=== PATIENT | male | born 1960 | race Caucasian/White ===

== ENCOUNTER 2020-07-05 14:38 | Emergency (ER) | payer BC, OTHER ==
[~2020-07-05] VITALS: Ht 167.6 cm; Wt 108.9 kg
[~2020-07-05 14:38] MED LIST: ACETAMINOPHEN325 M1 PO; ANTIVERT25 MG PO; LASIX20 MG PO; LEVAQUIN750 MG PO; NORCO 5-325 TA1 EACH PO; PREDNISONE10 MG PO; PREDNISONE20 MG PO; VITAMIN C1000 M1 PO; VITAMIN D3400 UNIT PO
[2020-07-05] MEDS ORDERED: POTASSIUM CHLO10 ME1 PO (14:59)
[2020-07-05] MEDS ORDERED: LASIX20 MG PO (14:59)
[2020-07-05] MEDS ORDERED: ELIQUIS5 MG PO (18:53)
--- NOTE | 2020-07-06 14:52 | EKG ---
[facility] [address] [place], [place] [address] Signed Sinus tachycardia with occasional premature ventricular complexes Otherwise normal ECG No previous ECGs available Confirmed by BAM SINGH DO ([id number]) on 07/06/2020 2:52:08 PM Electronically Signed By: BAM SINGH DO 07/06/20 1452 PATIENT NAME: OSCAR BONILLA MICHAEL Electrocardiogram DATE OF : 60 PHYSICIAN: BAM SINGH DO REPORT #: [id number] REPORT IS CONFIDENTIAL AND NOT TO BE RELEASED WITHOUT AUTHORIZATION
== END 2020-07-05 18:53 | disposition left against medical advice (07) ==
LOC: ED 14:38
DX: I82.442 Acute embolism and thrombosis of left tibial vein (principal); Z87.891 Personal history of nicotine dependence; Z88.5 Allergy status to narcotic agent; Z88.8 Allergy status to other drugs, medicaments and biological substances; Z88.1 Allergy status to other antibiotic agents; Z79.899 Other long term (current) drug therapy
CPT/HCPCS: 80053; 83735; 84484; 85025; 85610; 85730; 86850; 86900; 86901; 86920; 93005; 93010; 93971; 96372; 99285-25; J1650

== ENCOUNTER 2020-08-03 09:53 | Inpatient (IN) | payer BC ==
[~2020-08-03] VITALS: Ht 167.6 cm; Wt 120.2 kg
[~2020-08-03 09:53] MED LIST changes: -ANTIVERT25 MG PO; +ELIQUIS5 MG PO; +POTASSIUM CHLO10 ME1 PO; -VITAMIN C1000 M1 PO; +VITAMIN C1000 MG PO; +VITAMIN D310 MC1 PO; -VITAMIN D3400 UNIT PO; +WAL-DRAM 225 MG PO
--- OUTSIDE RECORDS SUMMARY | 2020-08-03 10:00 | XMS ---
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 CRITERIA MET - [facility] - 2 Visits in 30 Days CARE PROVIDERS RACH ZAPATA Internal Medicine Current PHONE: [phone] Brayan has no Care Guidelines for this patient. [place] VISIT COUNT (12 MO.) 1 [facility] 2 [facility]. TOTAL 3 NOTE: Visits indicate total known visits. ED/UCC VISIT TRACKING (12 MO.) 08/03/2020 09:53 [facility] TYPE: Emergency COMPLAINT: - R LEG SWOLLEN/OPEN SORES 07/05/2020 22:39 [facility] DIAGNOSES: - Anemia, unspecified - Other fatigue - Abnormal Lab - Other acquired hemolytic anemias 07/05/2020 14:38 [facility] TYPE: Emergency COMPLAINT: - DIZZINESS, R CALF PAIN DIAGNOSES: - Allergy status to narcotic agent - Weakness - Acute embolism and thrombosis of left tibial vein - Allergy status to other antibiotic agents - Other penitentiary (current) drug therapy - Personal history of nicotine dependence - Allergy status to other drugs, medicaments and biological substances INPATIENT VISIT TRACKING (12 MO.) 07/05/2020 22:39 [facility] [place] TYPE: Internal Medicine DIAGNOSES: - Anemia, unspecified - Unspecified viral hepatitis C without hepatic coma - Other acquired hemolytic anemias - Other stimulant abuse, in remission - Other fatigue - Pain in left lower leg [email or web address]
[2020-08-03] MEDS ORDERED: PREDNISONE20 MG PO (10:11)
--- NOTE | 2020-08-03 13:45 | NUR ---
MED SURG UNIT VIA STRETCHER. IV ROCEPHIN INFUSING. 20 G LAC IV REMAINS PATENT, NO REDNESS OR SWELLING NOTED AT SITE. LUNG SOUNDS ARE CLEAR THROUGHOUT. PT DENIES SOB OR N/V. 4+ PITTING EDEMA TO RLE, REDNESS NOTED ALONG W/ SMALL SCATTERED OPEN SORES TO MEDIAL AND LATERAL PORTION OF RLE. PT REPORTS 10/10 STABBING PAIN TO RLE WHEN ASKED. DOES NOT APPEAR IN DISTRESS AT THIS TIME. BG 271, 5 UNITS OF HUMALOG GIVEN. PT SITTING UP IN BED EATING LUNCH. ROCEPHIN COMPLETE, LR BOLUS @ 1000 MLS/HR NOW INFUSING TO LAC IV. ADMISSION ASSESSMENT COMPLETE. PT STEADY ON FEET IN TRANSFERRING FROM RNEY TO BED, ABLE TO AMBULATE INDEPENDENTLY. RLE ELEVATED PER MD. ORDERED ELIQUIS AND PREDNISONE GIVEN PER ORDER, PT STATES HE DID NOT TAKE HIS MORNING MEDICATIONS. VSS. PT REMAINS AFEBRILE @ 97.3. DENIES HAVING ANY FEVERS AT HOME. ADMISSION ASSESSMENT COMPLETE. CALL LIGHT IN REACH.
--- NOTE | 2020-08-03 15:00 | NUR ---
REPORT GIVEN TO DENNIS DUNN RN, WHO HAS NOW RESUMED CARE OF PT.
--- NOTE | 2020-08-03 15:09 | NUR ---
report received and care assumed. fresh h20 and personal items at bedside. pt denies needs of agrees to call for up out of bed
[2020-08-03] MEDS ORDERED: SYMBICORT 16010.2 GM INH (17:09)
--- NOTE | 2020-08-03 17:12 | NUR ---
Medications reconciled using pharmacy records and patient interview. Patient was prescribed Eliquis, but stopped taking it when he ran out.
--- NOTE | 2020-08-03 17:41 | NUR ---
PT UP IN ROOM INDEPENDANTLY APPEARS STEADY ON HIS FEET. SITTING ON EDGE OF BED NOW FOR EVENING MEAL.
--- NOTE | 2020-08-03 18:07 | NUR ---
PATIENT SITTING AT SIDE OF BED, FINISHING DINNER. VITALS AND I&OS CHARTED. CALL LIGTH IN REACH
--- NOTE | 2020-08-03 19:25 | NUR ---
PATIENT SITTING IN CHAIR WATCHING TV. PATIENT HAVING PAIN NOW IN THE RIGHT LEG AND REQUESTING TYLENOL. WILL RETURN WITH THIS MEDICATION. CALL LIGHT IN REACH.
--- NOTE | 2020-08-03 19:51 | NUR ---
PATIENT HAVING 10/10 RLE PAIN AND 500MG PO TYLENOL GIVEN. PATIENT'S WATER TOPPED OFF, URIANL EMPTIED. PATIENT IS BACK IN BED AND HAS HIS RIGHT LEG ELEVATED. PATIENT HAS CALL LIGHT IN REACH AND NO OTHER NEEDS AT THIS TIME.
--- NOTE | 2020-08-03 22:56 | NUR ---
PATIENT RESTING IN BED WATCHING TV. URINAL NEEDED EMPTIED SO THIS WAS DONE. PATIENT HAS NO OTHER NEEDS AT THIS TIME. CALL LIGHT IS IN REACH.
--- NOTE | 2020-08-04 00:35 | NUR ---
PATIENT'S URINAL NEEDED EMPTIED WHICH WAS DONE. PATIENT SAYS RLE PAIN 10/10 AGAIN AND PATIENT IS STANDING UP AT BEDSIDE AT THE MOMENT AND NO FACIAL GRIMACE NOTED. TYLENOL 500MG PO REPEATED. PATIENT HAS PO FLUIDS AT BEDSIDE AND CALL LIGHT IS IN REACH.
--- NOTE | 2020-08-04 01:00 | NUR ---
PATIENT RESTING QUIETLY IN BED WATCHING TV, CALL LIGHT IN REACH.
--- NOTE | 2020-08-04 02:00 | NUR ---
PATIENT RESTING QUIETLY WATCHING TV AND ICE WATER REFILLED. NO OTHER NEEDS. CALL LIGHT IN REACH.
--- NOTE | 2020-08-04 03:10 | NUR ---
PATIENT RESTING QUIETLY, EYES CLOSED, RESPIRATIONS REGULAR AND EVEN, CALL LIGHT IN REACH.
--- NOTE | 2020-08-04 05:59 | NUR ---
PATIENT SAYS HE HAS GOT A LITTLE SLEEP TONIGHT, BUT SAYS,"I'M A NIGHT OWL." PATIENT HAS BEEN TAKING IN PO FLUIDS WELL. VS HAVE BEEN STABLE. PATIENT DID GET 500MG OF TYLENOL TWICE TONIGHT FOR WHAT HE DESCRIBES 10/10 RLE PAIN. THE PAIN DROPS DOWN TO 7-8/10 AND HE IS COMFORTABLE AT THAT POINT. PATIENT HAD NO VERBALIZATION OF PAIN THIS AM. PATIENT HAS BEEN VOIDING A GREAT DEAL IN THE URINAL AND LEAVING IT AT THE BEDSIDE TO DUMP. PATIENT CALLS APPROPRIATELY AND IS ESSENTIALLY INDEPENDENT IN THE ROOM. CALL LIGHT IN REACH AND PATIENT IS CURRENTLY SITTING ON THE BEDSIDE AND HIS AM LABS HAVE BEEN DRAWN.
--- NOTE | 2020-08-04 07:25 | NUR ---
REPORT OFF TO MARQUES YANG. PATIENT HAVING 10/10 RLE PAIN AGAIN AND WAS GIVEN 500MG OF TYLENOL. CALL LIGHT IS IN REACH.
--- NOTE | 2020-08-04 07:47 | NUR ---
SHIFT REPORT FROM NURSE LOZA. PT IN BED AWAKE, ALERT AND TALKATIVE. PT DENIES NEEDS AT THIS TIME DENIA RN HAS JUST GIVEN PRN TYLENOL. CALL LIGHT WITHIN REACH
--- NOTE | 2020-08-04 09:30 | NUR ---
IN ROOM FOR MORNING MEDS AND ASSESSMENT. PT BACK IN BED AFTER BREAKFAST WITH LEG ELEVATED. EDEMA STILL PRONOUNCED IN R LEG, SOME WOUND DRAINAGE NOTED ON CHUCKS UNDER LEG. VSS. CMS INTACT. CBG 147 REQUIRING 1UNIT SS INSULIN. PT RATES PAIN 7-0/10 DEPENDING ON ACTIVITY. PRN TYLENOL HELPS SOME. ROCEPHIN INFUSING NOW. CALL LIGHT WITHIN REACH.
--- NOTE | 2020-08-04 10:44 | NUR ---
ROCEPHIN COMPLETE. IVF RETURNED TO LR. pt RESTING L LATERAL. DENIES NEEDS AT THIS TIME. CALL LIGHT WITHIN REACH
--- NOTE | 2020-08-04 11:15 | NUR ---
CALL LIGHT ANSWERED. pt REPORTS THAT HE HAS PULLED HIS IV OUT. UPON ENTERING ROOM, A FAIR AMOUNT OF BLOOD IS ON FLOOR, pt CONTINUES TO BLEED OUT OF IV SITE. IV SITE OCCLUDED WITH GAUZE AND pt INSTRUCTED TO SIT DOWN AND BEND ARM TO OCCLUDE SITE. NEW IV STARTED. pt BACK TO BED, IVF INFUSING. CALL LIGHT WITHIN REACH.
--- NOTE | 2020-08-04 14:38 | NUR ---
Pt states he lives alone in an apartment, has 6 steps with handrails. He works at [employer], but has not been able to do so on and off for t the last month due to pain. He does not drive, but son drives him to work, grocery shopping, and to Dr.' Champagne. Pt denies needs to go home and would like assist with papers for disabiltity. I encouraged him to speak with his DrRishi, he states he has and she does not feel he needs disability and is capable of working. Pt. Plans on dc to home when discharged.
--- NOTE | 2020-08-04 14:48 | NUR ---
PATIENT UP TO BATHROOM AND BACK TO BED, IND. FRESH WATER GIVEN. VITALS AND I&O'S CHARTED. CALL LIGHT IN REACH. NO FURTHER NEEDS AT THIS TIME.
--- NOTE | 2020-08-04 15:09 | NUR ---
IN ROOM TO HANG RAYA. pt REPORTS 8/10 PAIN IN RIGHT LEG. PRN PO TYLENOL ADMINISTERED. pt HAS LEG ELEVATED ON PILLOWS. CALL LIGHT WITHIN REACH
--- NOTE | 2020-08-04 16:01 | NUR ---
Srinivasan has been sitting in the chair in his room for approx 30 min. Srinivasan intiated a call light. I responded, pt reported IV pump was alarming. I silenced IV pump and sought preceptor Renetta. Srinivasan had been altering his posture by placing his left hand on the chair arm, occluding the IV placed in his wrist. Renetta/myself evaluated the area and IV and found no infiltration. IV pumps restarted. Srinivasan returned to the bed. Call light within reach.
--- NOTE | 2020-08-04 17:46 | NUR ---
IN ROOM FOR SS INSULIN ADMINISTRATION. CBG 286 REQUIRING 7UNITS SS INSULIN. pt REPORTS LEG PAIN 7/10 WHICH IS TOLERABLE TO pt IF HE REMAINS IN BED. pt UP TO TOILET TO VOID. WILL RETURN FOR ASSESSMENT.
--- NOTE | 2020-08-04 18:49 | NUR ---
ASSESSMENT COMPLETE. pt REPORTS ANOTHER BM. LUNGS HAVE EXPIRATORY WHEEZE THROUGHOUT; pt REPORTS USING INHALER IN THE PAST. VSS. RLE 4+EDEMA HOWEVER OVERALL REDNESS SEEMS IMPROVED. REDNESS REMAINS AROUND OPEN AREAS. pt REPORTS PAIN 7/10 BUT IF THE PAIN "GETS BETTER, I DO TOO MUCH" . pt DENIES FURTHER NEEDS AT THIS TIME. CALL LIGHT WITHIN REACH.
--- NOTE | 2020-08-04 20:44 | NUR ---
Pt in bed, up to br, had small formed bm, back to bed, On room air, SL L Arm flushes well. large soft abd. L leg 2+ generalized edema, skin scratches and scabbed over petra healing. R leg with 4+ pitting edema below the knee area, elevated in pillow, good CMS, scabbed over areas healing and several small blisters like petra back of leg moist, draining serous drainage. no odor. CBG 168 received 1 unit SS Insulin. med teaching of HS meds done, stated understanding. coop and pleasant. watching tv, denies c/o pain
--- NOTE | 2020-08-04 21:33 | NUR ---
PT CALLED REQUESTING TYLENOL FOR 10/10 R LEG PAIN. ADMINISTERED TYLENOL FOR PRIMARY RN EMANUEL AND PROVIDED MORE ICEWATER. PT DENIES FURTHER NEEDS AT THIS TIME. CALL LIGHT IS CLOSE.
--- NOTE | 2020-08-05 00:43 | NUR ---
Awakens easily, uses urinal, c/o mild IV site discomfort when Vancomycin infusing, no redness or edema at site, elevated. call light at bedside, R Leg elevated
--- NOTE | 2020-08-05 02:42 | NUR ---
resting, no s/sx distress, turns self in bed, sl at this time
--- NOTE | 2020-08-05 06:01 | NUR ---
PT REQUESTED SOME HOT TEA. HE DENIES FURTHER NEEDS. CALL LIGHT IS CLOSE.
--- NOTE | 2020-08-05 06:57 | NUR ---
RAYA THROUGHT 15.6, WILL CALL RX AT 0700 FOR FURTHER INSTRUCTIONS
--- NOTE | 2020-08-05 07:05 | NUR ---
BEDSIDE HANDOFF REPORT RECEIVED FROM CORRECTIONAL TREATMENT SPECIALIST RN. PT RESTING IN BED, IV VANCO INFUSION STARTED.
--- NOTE | 2020-08-05 08:00 | NUR ---
PT RESTING IN BED, RIGHT LEG ELEVATED. PT ON ROOM AI, LUNG SOUNDS CLEAR, DENIES SOB. BOWEL TONES ACTIVE, DENIES NAUSEA, BLOOD GLUCOSE 209, GIVEN 3 UNITS SS HUMALOG. PT RATING PAIN 7/10 TO RIGHT LEG, GIVEN TYLENOL. IV VANCO INFUSING. PT WITH EDEMA TO RIGHT LOWER LEG, 4+ IN FOOT, 2-3+ IN CRUZ, CRUZ WARM TENDER TO TOUCH. CMS INTACT. DISCUSSED PLAN OF CARE, PT ASKING ABOUT MRSA SCREEN, RESULTS STILL PENDING. PT DENIES OTHER NEEDS AT THIS TIME.
--- NOTE | 2020-08-05 10:15 | NUR ---
CHECKED PATIENTS BLOOD SUGAR UPON DR. SINGH'S REQUEST. BLOOD SUGAR WAS 324.
--- NOTE | 2020-08-05 10:45 | NUR ---
Srinivasan says IV in left wrist is hurting. Educated him on Vancomycin and that it can cause severe tenderness and pain. Vanco had been infused at this time. Switched Srinivasan to his next ABX hung with NS. Orthostatic BP was directed by provider. Conducted sittin/standing/lying BPs on Srinivasan. At this time Srinivasan returned to his bed. Srinivasan denies needing anything further at this time. Call light is within his reach.
--- NOTE | 2020-08-05 10:49 | NUR ---
PATIENT IN BED RESTING. VITALS AND I&O'S CHARTED. PATIENT WANTS TO SHOWER LATER. CALL LIGHT IN REACH. NO FURTHER NEEDS AT THIS TIME.
--- NOTE | 2020-08-05 12:06 | NUR ---
PT GIVEN 5 UNITS HUMALOG FOR BLOOD GLUCOSE 275. IV CATH REMOVED PER PT REQUEST, PLAN TO START NEW IV AFTER SHOWER. SHOWER ITEMS SET UP, PT WILL SHOWER AFTER LUNCH THEN CALL WHEN READY FOR NEW IV. PT DENIES OTHER NEEDS AT THIS TIME.
--- NOTE | 2020-08-05 12:28 | NUR ---
PT UP BRUSHING HAIR. HE IS ALERT ORIENTE AND WAITING FOR DC. PT EXPRESSED FRUSTRATION AT YET ANOTHER INFECTION. HAD GOOD VISIT, GAVE ENCOURAGEMENT, AND HAD PRAYER WITH PT. GAVE G.POST AND WILL FOLLOW
--- NOTE | 2020-08-05 13:34 | NUR ---
NO CHANGE IN DISCHARGE PLAN. TO RETURN HOME WITH HELP OF FAMILY/FRIENDS.
--- NOTE | 2020-08-05 13:42 | NUR ---
IV attempt X1 by community health nursing director, failed. IV attempt X1 failed by this nurse. IV started with second attempt to right hand. Tolerated well.
--- NOTE | 2020-08-05 13:45 | NUR ---
PT SITTING ON EDGE OF BED. AFTERNOON ASSESSMENT COMPLETED, NO ACUTE CHANGES. PT DENIES NEEDS AT THIS TIME.
--- NOTE | 2020-08-05 16:40 | NUR ---
PT GIVEN 5 UNITS SS HUMALOG FOR BLOOD GLUCOSE 257. PT DENIES OTHER NEEDS AT THIS TIME.
--- NOTE | 2020-08-05 17:15 | NUR ---
PT ON ROOM AIR, LUNG SOUNDS CLEAR. PT GIVEN TYLENOL X1 FOR RIGHT LEG PAIN. IV VANCO AND ROCEPHIN, OTHERWISE SALINE LOCKED. RIGHT LEG WITH EDEMA 3-4+ AND REDNESS, LEG ELEVATED. BLOOD GLUCOSE CONTINUES TO BE HIGH, SS HUMALOG AND LANTUS GIVEN. VOIDIG QS, HAD BM TODAY.
--- NOTE | 2020-08-05 19:20 | NUR ---
SHIFT REPORT RECEIVED FROM ALEXANDRA YANG. PT SITTING UP IN CHAIR, WATCHING TV. NO NEEDS AT THIS TIME. CALL LIGHT IN REACH.
--- NOTE | 2020-08-05 20:15 | NUR ---
IN TO GET PM VITALS WITH RN, ICE WATER TOPPED OFF, NO FURTHER NEEDS
--- NOTE | 2020-08-05 20:27 | NUR ---
ASSESSMENT COMPLETED. GCS 15, A&O X4. LUNGS CLEAR, HEART TONES REGULAR. ABD SOFT, NONTENDER, OBESE, BOWEL TONES ACTIVE. SCHEDULED MEDS PROVIDED. CBG 184, 5 UNITS LISPRO PROVIDED. PAIN IN RLE IS 9/10, PRN PAIN MED PROVIDED. RLE HAS 3+ EDEMA, REDNESS, CMS INTACT. IV FLUSHED WELL, CDI, WNL. NO OTHER NEEDS AT THIS TIME. CALL LIGHT IN REACH.
--- NOTE | 2020-08-05 20:48 | NUR ---
ROUNDING MACHINE TENDER ROUNDING NOTE. PT RESTING IN BED WATCHING TV. PT REQUESTS EXTRA BLANKET AND THERMOSTAT TURNED UP. DECLINES FURTHER NEEDS. WHITEBOARD UDPATED. CALL LIGHT IN REACH.
--- NOTE | 2020-08-05 22:25 | NUR ---
IN TO EMPTY URINAL, PT IS ASLEEP AT THIS TIME
--- NOTE | 2020-08-05 23:01 | NUR ---
SCHEDULED MED PROVIDED. IV WNL. SNACK PROVIDED. NO OTHER NEEDS AT THIS TIME. CALL LIGHT IN REACH.
--- NOTE | 2020-08-06 | NUR ---
PT RESTING IN BED, EYES CLOSED. RR EVEN, UNLABORED. IV MED INFUSING PER ORDER. CALL LIGHT IN REACH.
--- NOTE | 2020-08-06 02:44 | NUR ---
PT REPORTS 10/10 CRISOSTOMO, PRN TYLENOL PROVIDED. ASSESSMENT COMPLETED. LUNGS CLEAR, HEART TONES REGULAR. ABD FIRM, OBESE, BOWEL TONES ACTIVE. 3+ RLE EDEMA, 2+ LLE EDEMA. RLE HAS REDNESS. NO OTHER NEEDS AT THIS TIME. CALL LIGHT IN REACH.
--- NOTE | 2020-08-06 06:18 | NUR ---
VS AND I&O COMPLETED. ICE WATER AND SCHEDULED MED PROVIDED. PT STATES HE HAS 8/10 CRISOSTOMO, PRN TYLENOL PROVIDED. IV WNL, FLUSHED WELL. NO OTHER NEEDS AT THIS TIME. CALL LIGHT IN REACH.
[2020-08-06] MEDS ORDERED: ELIQUIS5 MG PO (09:15)
[2020-08-06] MEDS ORDERED: CEPHALEXIN500 M1 PO (09:17)
[2020-08-06] MEDS ORDERED: METFORMIN HCL500 M2 PO (09:17)
[2020-08-06] MEDS ORDERED: FREESTYLE LITE1 EAC1 TD (09:22)
[2020-08-06] MEDS ORDERED: FREESTYLE FREE1 EAC1 MISC (09:22)
[2020-08-06] MEDS ORDERED: GLIPIZIDE XL2.5 MG PO (09:23)
--- NOTE | 2020-08-06 09:50 | NUR ---
DR SINGH IN TO SEE PT, ALL QUESTIONS ANSWERS. DC ORDERS WRITTEN.
--- NOTE | 2020-08-06 11:03 | NUR ---
DISCHARGE INSTRUCTIONS GIVEN TO PATIENT, VERBALIZES UNDERSTANDING OF MEDICATIONS, FOLLOW UP APPOINTMENT, S/SX TO REPORT. PHARMACY WAS IN AND SPOKE WITH PT WELL. STATES HE IS PLEASED WITH HOSPITAL STAY AND IS EAGER TO GO HOME NOW.
== END 2020-08-06 11:00 | disposition home or self-care (01) | DRG 872 ==
LOC: ED 09:53 → MS 13:04
PROVIDERS: ADMIT Internal Medicine; ATTEND Internal Medicine
DX: A41.9 Sepsis, unspecified organism (principal); L03.115 Cellulitis of right lower limb; D59.11 Warm autoimmune hemolytic anemia; Z20.822 Contact with and (suspected) exposure to COVID-19; G47.33 Obstructive sleep apnea (adult) (pediatric); R42 Dizziness and giddiness; E11.65 Type 2 diabetes mellitus with hyperglycemia; E09.65 Drug or chemical induced diabetes mellitus with hyperglycemia; T38.0X5A Adverse effect of glucocorticoids and synthetic analogues, initial encounter; Z86.718 Personal history of other venous thrombosis and embolism; Z86.19 Personal history of other infectious and parasitic diseases; Z87.891 Personal history of nicotine dependence; Z88.8 Allergy status to other drugs, medicaments and biological substances; Z88.5 Allergy status to narcotic agent; Z79.899 Other long term (current) drug therapy
CPT/HCPCS: 36415; 71045; 74177; 80048; 80053; 80202; 83036; 83605; 83735; 83880; 84484; 85025; 85610; 85730; 86060; 93971; 99285-25; C9803; J0696; J1815; J3370; J7030; J7060; J7121; J7512; Q9967; U0003

== ENCOUNTER 2020-09-17 15:02 | Emergency (ER) | payer BC ==
[~2020-09-17] VITALS: Ht 167.6 cm; Wt 120.2 kg
[~2020-09-17 15:02] MED LIST changes: +CEPHALEXIN500 M1 PO; +FREESTYLE FREE1 EAC1 MISC; +FREESTYLE LITE1 EAC1 TD; +GLIPIZIDE XL2.5 MG PO; +METFORMIN HCL500 M2 PO; +SYMBICORT 16010.2 GM INH
--- OUTSIDE RECORDS SUMMARY | 2020-09-17 15:04 | XMS ---
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 CRITERIA MET - Group Notification - History of Sepsis Dx CARE PROVIDERS RACH ZAPATA Internal Medicine Current PHONE: [phone] Brayan has no Care Guidelines for this patient. Care History Medical/Surgical 08/03/2020 [facility] - Patient is currently established with [facility]. If patient is seen in the ED during business hours. Please contact CHWs at [facility]. Care Recommendation: If this patient has had 5 or more Emergency Department visits in the last 12 months.\T\nbsp; Patient will require education on the scope and purpose of the ED as an acute care provider not a Primary Care Provider and should not be utilized for chronic conditions.\T\nbsp; These are guidelines and the provider should exercise clinical judgment when providing care. E.D. VISIT COUNT (12 MO.) 1 [facility] 3 [facility] TOTAL 4 NOTE: Visits indicate total known visits. ED/UCC VISIT TRACKING (12 MO.) 09/17/2020 15:02 [facility] TYPE: Emergency COMPLAINT: - RT LEG SWELLING 08/03/2020 09:53 [facility] TYPE: Emergency COMPLAINT: - R LEG SWOLLEN/OPEN SORES 07/05/2020 22:39 [facility] TYPE: Emergency DIAGNOSES: - Anemia, unspecified - Other fatigue - Abnormal Lab - Other acquired hemolytic anemias 07/05/2020 14:38 [facility] TYPE: Emergency COMPLAINT: - DIZZINESS, R CALF PAIN DIAGNOSES: - Allergy status to narcotic agent - Weakness - Acute embolism and thrombosis of left tibial vein - Allergy status to other antibiotic agents - Other chcf (current) drug therapy - Personal history of nicotine dependence - Allergy status to other drugs, medicaments and biological substances INPATIENT VISIT TRACKING (12 MO.) 08/03/2020 13:04 [facility] TYPE: Medical Surgical COMPLAINT: - CELLULITIS DIAGNOSES: - Allergy status to narcotic agent - Allergy status to other drugs, medicaments and biological substances - Allergy status to other drugs, medicaments and biological substances - Warm autoimmune hemolytic anemia - 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 - Warm autoimmune hemolytic anemia - Cellulitis of right lower limb - Obstructive sleep apnea (adult) (pediatric) - Other termite control servicer (current) drug therapy - Obstructive sleep apnea (adult) (pediatric) - Personal history of other venous thrombosis and embolism - Personal history of other infectious and parasitic diseases - 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 - Personal history of nicotine dependence - Adverse effect of glucocorticoids and synthetic analogues, initial encounter - Dizziness and giddiness - Sepsis, unspecified organism - Personal history of other infectious and parasitic diseases - Allergy status to narcotic agent - Adverse effect of glucocorticoids and synthetic analogues, initial encounter - Personal history of nicotine dependence - Dizziness and giddiness - Other termite control servicer (current) drug therapy - Type 2 diabetes mellitus with hyperglycemia - Personal history of other venous thrombosis and embolism - Cellulitis of right lower limb - Type 2 diabetes mellitus with hyperglycemia 07/05/2020 22:39 [facility] TYPE: Internal Medicine DIAGNOSES: - Anemia, unspecified - Unspecified viral hepatitis C without hepatic coma - Other acquired hemolytic anemias - Other stimulant abuse, in remission - Other fatigue - Pain in left lower leg [email or web address]
== END 2020-09-17 19:06 | disposition short-term general hospital (02) ==
LOC: ED 15:02
DX: D59.10 Autoimmune hemolytic anemia, unspecified (principal); Z20.822 Contact with and (suspected) exposure to COVID-19; Z87.891 Personal history of nicotine dependence; Z88.5 Allergy status to narcotic agent; Z88.1 Allergy status to other antibiotic agents; Z79.899 Other long term (current) drug therapy; Z79.84 Long term (current) use of oral hypoglycemic drugs; Z79.52 Long term (current) use of systemic steroids
CPT/HCPCS: 80053; 85025; 93971; 96365; 99284-25; C9803; J0696; J7512; U0003

== ENCOUNTER 2021-06-09 18:41 | Emergency (ER) | payer OTHER ==
[~2021-06-09] VITALS: Ht 167.6 cm; Wt 108.9 kg
--- OUTSIDE RECORDS SUMMARY | 2021-06-09 18:50 | XMS ---
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 CRITERIA MET - Group Notification CARE PROVIDERS There are no care providers on record at this time. Brayan has no Care Guidelines for this patient. Care History Medical/Surgical 08/03/2020 [facility] - Patient is currently established with [facility]. If patient is seen in the ED during business hours. Please contact CHWs at [facility]. Care Recommendation: If this patient has [...] providing care. E.D. VISIT COUNT (12 MO.) 2 [facility] 4 [facility] TOTAL 6 NOTE: Visits indicate total known visits. ED/UCC VISIT TRACKING (12 MO.) 06/09/2021 18:42 [facility] TYPE: Emergency COMPLAINT: - FALL 09/28/2020 19:10 [facility] TYPE: Emergency 09/17/2020 15:02 [facility] TYPE: Emergency COMPLAINT: - RT LEG SWELLING DIAGNOSES: - Other nursing home (current) drug therapy - long-term (current) use of oral hypoglycemic drugs - long-term (current) use of systemic steroids - Allergy status to other antibiotic agents - Autoimmune hemolytic anemia, unspecified - Personal history of nicotine dependence - Allergy status to narcotic agent 08/03/2020 09:53 [facility] TYPE: Emergency COMPLAINT: - R LEG SWOLLEN/OPEN SORES 07/05/2020 22:39 [facility] TYPE: Emergency DIAGNOSES: - Anemia, unspecified - Other fatigue - Abnormal Lab - Other acquired hemolytic anemias 07/05/2020 14:38 [facility] TYPE: Emergency COMPLAINT: - DIZZINESS, R CALF PAIN DIAGNOSES: - Allergy status to narcotic agent - Weakness - Acute embolism and thrombosis of left tibial vein - Allergy status to other antibiotic agents - Other terminal operations supervisor (current) drug therapy - Personal history of nicotine dependence - Allergy status to other drugs, medicaments and biological substances INPATIENT VISIT TRACKING (12 MO.) [facility] DIAGNOSES: - Chronic viral hepatitis B without delta-agent - Acquired hemolytic anemia, unspecified - severe autoimmune hemolytic anemia - Cellulitis of right lower limb - Unspecified viral hepatitis C without hepatic coma 08/03/2020 13:04 [facility] TYPE: Medical [...] Obstructive sleep apnea (adult) (pediatric) - Other nursing home (current) drug therapy - Obstructive sleep apnea [...] dependence - Dizziness and giddiness - Other terminal operations supervisor (current) drug therapy - Type 2 diabetes mellitus with hyperglycemia - Personal history of other venous thrombosis and embolism - Cellulitis of right lower limb - Type 2 diabetes mellitus with hyperglycemia [facility]05[facility]2020 [facility]39 [facility]: Internal Medicine DIAGNOSES: - Anemia, unspecified - Unspecified viral hepatitis C without hepatic coma - Other acquired hemolytic anemias - Other stimulant abuse, in remission - Other fatigue - Pain in left lower leg [id number]
[2021-06-09] MEDS ORDERED: DICLOFENAC SODI75 MG PO (20:18)
[2021-06-09] MEDS ORDERED: HYDROCODON-ACE1 EA10 PO (20:18)
== END 2021-06-09 20:51 | disposition home or self-care (01) ==
LOC: ED 18:41
DX: S82.55XA Nondisplaced fracture of medial malleolus of left tibia, initial encounter for closed fracture (principal); W00.0XXA Fall on same level due to ice and snow, initial encounter; Z87.891 Personal history of nicotine dependence; Z88.5 Allergy status to narcotic agent; Z88.8 Allergy status to other drugs, medicaments and biological substances; Z88.1 Allergy status to other antibiotic agents; Z79.899 Other long term (current) drug therapy; Z79.84 Long term (current) use of oral hypoglycemic drugs; Z79.52 Long term (current) use of systemic steroids
CPT/HCPCS: 71101; 73560; 73610; 99283-25

== ENCOUNTER 2022-02-15 22:24 | Emergency (ER) | payer SELFPAY ==
[~2022-02-15] VITALS: Ht 167.6 cm; Wt 106.0 kg
[~2022-02-15 22:24] MED LIST changes: +DICLOFENAC SODI75 MG PO; +HYDROCODON-ACE1 EA10 PO
--- OUTSIDE RECORDS SUMMARY | 2022-02-15 22:32 | XMS ---
PreManage Notification: OSCAR BONILLA Security Resource [employer]ster Events No recent Security Events currently on file CRITERIA MET - Group Notification - [facility] - Has Care Guidelines CARE PROVIDERS RACH ZAPATA Internal Medicine 06/12/2021-Current PHONE: Unknown Brayan has no Care Guidelines for this patient. Care History Medical/Surgical 06/13/2021 [facility] Appropriate use of ER for fall. Patient has follow up with PCP on 06/20/2021 and gave him phone # to Dr. Baiclio Patterson office for follow up with ortho. 08/03/2020 [facility] - Patient is currently established with [facility]. If patient is seen in the ED during business hours. Please contact [facility] at [facility]. Care Recommendation: If this patient has had [...] care. E.D. VISIT COUNT (12 MO.) [address] [facility] TOTAL 2 NOTE: Visits indicate total known visits. ED/UCC VISIT TRACKING (12 MO.) 02/15/2022 22:24 [facility] TYPE: Emergency COMPLAINT: - EAR PAIN/ PROBLEM 06/09/2021 18:42 [facility] TYPE: Emergency COMPLAINT: - FALL DIAGNOSES: - Personal history of nicotine dependence - private pilot (current) use of oral hypoglycemic drugs - Nondisplaced fracture of medial malleolus of left tibia, initial encounter for closed fracture - Fall on same level due to ice and snow, initial encounter - private pilot (current) use of systemic steroids - Allergy status to other drugs, medicaments and biological substances - Other [facility] (current) drug therapy - Pleurodynia - Allergy status to narcotic agent - Allergy status to other antibiotic agents INPATIENT VISIT TRACKING (12 MO.) No inpatient visits to display in this time frame [email or web address]
== END 2022-02-16 01:38 | disposition home or self-care (01) ==
LOC: ED 22:24
DX: T16.1XXA Foreign body in right ear, initial encounter (principal); Z87.891 Personal history of nicotine dependence; Z88.5 Allergy status to narcotic agent; Z88.8 Allergy status to other drugs, medicaments and biological substances; Z79.899 Other long term (current) drug therapy; Z79.84 Long term (current) use of oral hypoglycemic drugs; Z79.52 Long term (current) use of systemic steroids
CPT/HCPCS: 69200; 99282-25

== ENCOUNTER 2023-11-07 20:11 | Emergency (ER) | payer BC ==
[~2023-11-07] VITALS: Ht 167.6 cm; Wt 110.0 kg
[2023-11-07 20:38] LABS: BASOPHILS 0.8 % (0-2); HEMATOCRIT 43.3 % (35.0-50.0); HEMOGLOBIN 15.6 g/dL (12.0-18.0); LYMPHOCYTES 19.4 % (24-44); MCH 35.6 (27-36); MCV 99.1 fl (81-99); MONOCYTES 8.4 % (0-12); NEUTROPHILS 69.4 % (39-80); PLATELET COUNT 192 K/uL (140-440); RBC 4.37 M/ul (4.3-5.7); RDW 12.3 (10.5-15.0)
[2023-11-07 20:58] LABS: ALBUMIN 3.9 g/dL (3.4-5.0); ALBUMIN/GLOBULIN RATIO 1.34 (1.1-2.4); BILIRUBIN, TOTAL 0.9 ng/dL (0.2-1.0); BUN/CREATININE RATIO 14.86 (6.0-28.6); CALCIUM 8.4 mg/dL (8.5-10.1); CREATININE, SERUM 0.74 mg/dL (0.70-1.30); PROTEIN, TOTAL 6.8 g/dL (6.4-8.2)
[2023-11-07] MEDS ORDERED: BACTRIM DS TAB1 EACH PO (21:22)
[2023-11-07] MEDS ORDERED: TRAMADOL HCL50 MG PO (21:22)
[2023-11-07] MEDS ORDERED: TRIMETHOPRIM/SULFAMETHOXAZOLE 1 EA HOME.PACK PO ONE (21:30)
[2023-11-07] MEDS ORDERED: TRAMADOL HCL 50 MG HOME.PACK PO ONE (21:30)
[2023-11-07 21:43] VITALS: BP 154/78
== END 2023-11-07 21:44 | disposition home or self-care (01) ==
LOC: ED 20:11
PROVIDERS: Family Medicine
DX: L97.919 Non-pressure chronic ulcer of unspecified part of right lower leg with unspecified severity (principal); Z87.891 Personal history of nicotine dependence; Z88.5 Allergy status to narcotic agent; Z79.899 Other long term (current) drug therapy; Z79.52 Long term (current) use of systemic steroids
CPT/HCPCS: 36415; 73590; 80053; 83036; 83605; 85025; 86140; 99283-25; A9270

== ENCOUNTER 2025-04-19 11:21 | Emergency (ER) | payer BC ==
[~2025-04-19] VITALS: Ht 167.6 cm; Wt 110.3 kg
[~2025-04-19 11:21] MED LIST changes: +BACTRIM DS TAB1 EACH PO; +TRAMADOL HCL50 MG PO
[2025-04-19 11:50] LABS: BASOPHILS 0.6 % (0.2-1.2); EOSINOPHILS 1.4 % (0.8-7.0); LYMPHOCYTES 18.0 % (21.8-53.1); MCH 34.0 PG (25.7-32.2); MCHC 35.5 g/dL (32.3-36.5); MCV 95.9 fL (79.0-92.2); MONOCYTES 8.2 % (5.3-12.2); NEUTROPHILS 71.3 % (34.0-67.9); RBC 4.41 M/uL (4.63-6.08)
[2025-04-19 12:05] LABS: ALT (SGPT) 39.0 U/L (14-59); AST (SGOT) 15.0 U/L (15-37); GLOMERULAR FILTRATION RATE,EST 99.0 mL/min (>60); PROTEIN, TOTAL 6.6 g/dL (6.4-8.2); UREA NITROGEN 14.0 mg/dL (7-18)
[2025-04-19] MEDS ORDERED: XARELTO15 MG PO (13:41)
[2025-04-19 13:54] VITALS: BP 152/95
== END 2025-04-19 13:54 | disposition home or self-care (01) ==
LOC: ED 11:21
PROVIDERS: Emergency Medicine
DX: I82.4Z1 Acute embolism and thrombosis of unspecified deep veins of right distal lower extremity (principal); Z88.5 Allergy status to narcotic agent; Z88.1 Allergy status to other antibiotic agents; Z87.891 Personal history of nicotine dependence
CPT/HCPCS: 36415; 80053; 83605; 85025; 87040; 87070; 87075; 87205; 99284-25